=== PATIENT | male | born 1955 | race Caucasian/White ===

== ENCOUNTER 2024-05-22 19:10 | Inpatient (IN) | payer OTHER ==
[2024-05-22] MEDS ORDERED: ACETAMINOPHEN INJECTION 100 ML IVPB ONE (20:04)
[2024-05-22] MEDS: ACETAMINOPHEN 1000 MG/100 ML BAG IVPB ONE (20:23)
[2024-05-22 20:36] LABS: BASO % 0.7 % (0-2.0); HEMATOCRIT 36.9 % (35.4-49); HEMOGLOBIN 13.3 GM/dL (11.7-16.9); LYMPH % 14.2 % (8-40); MCH 29.2 pg (25.7-33.7); MEAN CELL VOLUME 81.2 fl (80-96); MEAN PLT VOLUME 7.5 fl (7.5-11.1); MONO % 6.6 % (3.8-10.2); NEUT % 75.5 % (42.8-82.8); PLATELET COUNT 220 10^3/uL (134-434); RBC 4.55 M/mm3 (4.00-5.60); RDW 14.5 % (11.9-15.9); WHITE BLOOD COUNT 10.2 K/mm3 (4.0-10.0)
[2024-05-22 20:44] LABS: INR 1.11 (0.83-1.09); PROTHROMBIN TIME (PATIENT) 12.7 SEC (9.7-13.0)
[2024-05-22 20:47] LABS: ACTIVATED PTT 33.7 SECONDS (25.2-36.5)
[2024-05-22 20:54] LABS: POTASSIUM 3.7 mmol/L (3.5-5.1)
[2024-05-22 20:56] LABS: ALBUMIN 3.9 g/dl (3.4-5.0); BLOOD UREA NITROGEN 20.1 mg/dL (7-18); CALCIUM 9.6 mg/dL (8.5-10.1)
[2024-05-22 20:59] LABS: CREATININE 0.8 mg/dL (0.55-1.3)
[2024-05-22 21:01] LABS: BILIRUBIN,TOTAL 0.9 mg/dL (0.2-1); TOT PROT 7.4 g/dl (6.4-8.2)
[2024-05-22] MEDS ORDERED: KETOROLAC TROMETHAMINE 15 MG/ML VIAL ONE (21:45)
[2024-05-22] MEDS: KETOROLAC TROMETHAMINE 15 MG/ML VIAL IVPUSH ONE (22:31)
[2024-05-22 22:34] LABS: EPI CELLS 2 /uL (0-25.1); HYALINE CASTS 3 /uL (0-3.1); URINE APPEARANCE CLOUDY; URINE BACTERIA >9,000 /uL (0-1359); URINE BILIRUBIN NEGATIVE (NEGATIVE); URINE COLOR DK YELLOW; URINE GLUCOSE (UA) NEGATIVE (NEGATIVE); URINE KETONE TRACE (NEGATIVE); URINE LEUK ESTERASE 2+ (NEGATIVE); URINE NITRITE POSITIVE (NEGATIVE); URINE PROTEIN 2+ (NEGATIVE); URINE RBC 1295 /uL (0-23.9); URINE WBC 691 /uL (0-25.8)
[2024-05-22] MEDS ORDERED: CEFTRIAXONE 1 GM/50 ML BAG ONE (23:30)
[2024-05-22] MEDS: CEFTRIAXONE 1,000 MG in DEXTROSE 5%-WATER - 50 ML IVPB ONE (23:40)
[2024-05-23] MEDS ORDERED: MORPHINE SULFATE 2 MG/ML SYRINGE ONE (01:18)
[2024-05-23] MEDS ORDERED: ACETAMINOPHEN 325 MG TABLET (FP) PO PRN ×2 (03:57→17:59)
[2024-05-23] MEDS ORDERED: PIPERACILLIN/TAZOB 3.375 GM 3.375 GM/50 ML BAG IVPB ONE (04:21)
[2024-05-23] MEDS: PIPERACILLIN/TAZOB 3.375 GM 3.375 GM in DEXTROSE 5%-WATER - 50 ML IVPB SCH ×2 (04:26→18:42)
[2024-05-23 06:13] VITALS: RESP 18
[2024-05-23 06:16] LABS: BASO % 0.8 % (0-2.0); EOS % 3.9 % (0-4.5); HEMATOCRIT 36.3 % (35.4-49); HEMOGLOBIN 13.3 GM/dL (11.7-16.9); LYMPH % 14.5 % (8-40); MCH 29.6 pg (25.7-33.7); MCHC 36.6 g/dl (32.0-35.9); MEAN CELL VOLUME 80.9 fl (80-96); MEAN PLT VOLUME 7.7 fl (7.5-11.1); MONO % 8.6 % (3.8-10.2); NEUT % 72.2 % (42.8-82.8); PLATELET COUNT 223 10^3/uL (134-434); RBC 4.49 M/mm3 (4.00-5.60); RDW 14.3 % (11.9-15.9); WHITE BLOOD COUNT 9.5 K/mm3 (4.0-10.0)
[2024-05-23 06:34] LABS: POTASSIUM 4.1 mmol/L (3.5-5.1)
[2024-05-23] MEDS: PIPERACILLIN/TAZOB 3.375 GM 3.375 GM/50 ML BAG IVPB SCH (06:37)
[2024-05-23 06:38] LABS: CALCIUM 9.5 mg/dL (8.5-10.1)
[2024-05-23 06:39] LABS: ALBUMIN 3.7 g/dl (3.4-5.0)
[2024-05-23 06:42] LABS: CREATININE 1.1 mg/dL (0.55-1.3); PHOSPHOROUS 4.8 mg/dL (2.5-4.9)
[2024-05-23 06:44] LABS: BILIRUBIN,TOTAL 2.2 mg/dL (0.2-1); TOT PROT 7.1 g/dl (6.4-8.2)
[2024-05-23] MEDS: PIPERACILLIN/TAZOB 3.375 GM 3.375 GM in DEXTROSE 5%-WATER 100 ML IVPB SCH (10:10)
[2024-05-23] MEDS: ENOXAPARIN NA (PORCINE) 40 MG/0.4 ML DISP.SYRIN SQ SCH (10:11)
[2024-05-23 12:07] VITALS: BMI 20.4
[2024-05-23] MEDS: LIDOCAINE 5% TOPICAL PATCH TP SCH (12:48)
[2024-05-23 13:10] LABS: METHADONE, UR NEGATIVE (NEGATIVE); URINE AMPHETAMINES NEGATIVE (NEGATIVE); URINE BARBITURATES NEGATIVE (NEGATIVE)
[2024-05-23 13:11] LABS: PHENCYCLIDINE,URINE NEGATIVE (NEGATIVE); URINE BENZODIAZEPINES NEGATIVE (NEGATIVE)
[2024-05-23 13:22] LABS: COCAINE, UR NEGATIVE (NEGATIVE); OPIATES, URI POSITIVE (NEGATIVE)
[2024-05-23 14:32] LABS: BILIRUBIN,DIRECT 1.3 mg/dL (0.0-0.2)
[2024-05-23] MEDS: traMADol HCL 50 MG TABLET PO PRN (18:40)
[2024-05-23] MEDS: LIDOCAINE PATCH REMOVAL MC SCH (22:18)
[2024-05-24 09:31] LABS: BASO % 0.9 % (0-2.0); EOS % 7.7 % (0-4.5); HEMATOCRIT 36.8 % (35.4-49); HEMOGLOBIN 13.5 GM/dL (11.7-16.9); LYMPH % 21.8 % (8-40); MCH 29.5 pg (25.7-33.7); MCHC 36.7 g/dl (32.0-35.9); MEAN CELL VOLUME 80.4 fl (80-96); MEAN PLT VOLUME 7.9 fl (7.5-11.1); MONO % 6.5 % (3.8-10.2); NEUT % 63.1 % (42.8-82.8); PLATELET COUNT 222 10^3/uL (134-434); RBC 4.57 M/mm3 (4.00-5.60); RDW 14.3 % (11.9-15.9); WHITE BLOOD COUNT 6.7 K/mm3 (4.0-10.0)
[2024-05-24 09:34] LABS: POTASSIUM 3.9 mmol/L (3.5-5.1)
[2024-05-24 09:56] LABS: ALBUMIN 3.7 g/dl (3.4-5.0); CALCIUM 9.3 mg/dL (8.5-10.1)
[2024-05-24 09:57] LABS: BLOOD UREA NITROGEN 19.6 mg/dL (7-18)
[2024-05-24 09:58] LABS: CREATININE 0.8 mg/dL (0.55-1.3); TOT PROT 7.2 g/dl (6.4-8.2)
[2024-05-24 09:59] LABS: BILIRUBIN,TOTAL 0.8 mg/dL (0.2-1)
[2024-05-25] MEDS ORDERED: amLODIPine BESYLATE 5 MG TABLET (FP) PO ONE (08:00)
[2024-05-25] MEDS: hydrALAZINE HCL 25 MG TABLET (FP) PO SCH (10:30)
[2024-05-25 10:50] LABS: POTASSIUM 3.8 mmol/L (3.5-5.1)
[2024-05-25 10:58] LABS: ALBUMIN 3.6 g/dl (3.4-5.0); CALCIUM 9.3 mg/dL (8.5-10.1)
[2024-05-25 11:01] LABS: CREATININE 0.9 mg/dL (0.55-1.3)
[2024-05-25] MEDS: amLODIPine BESYLATE 5 MG TABLET (FP) PO ONE (11:01)
[2024-05-25 11:02] LABS: BILIRUBIN,TOTAL 0.6 mg/dL (0.2-1)
[2024-05-25] MEDS: NITROFURANTOIN MONOHYD/M-CRYST 100 MG CAPSULE PO SCH (16:20)
[2024-05-25] MEDS: traMADol HCL 50 MG TABLET PO PRN (21:40)
[2024-05-26] MEDS: ACETAMINOPHEN 1000 MG/100 ML BAG IVPB ONE (03:00)
[2024-05-27 00:33] VITALS: PULSE 77
[2024-05-27] MEDS ORDERED: traMADol HCL 50 MG TABLET PO PRN (08:00)
[2024-05-27] MEDS ORDERED: ACETAMINOPHEN 325 MG TABLET (FP) PO PRN ×2 (08:00→09:38)
[2024-05-27] MEDS: traMADol HCL 50 MG TABLET PO ONE (08:21)
[2024-05-27] MEDS: GABAPENTIN 100 MG CAPSULE PO ONE (08:21)
[2024-05-27 08:53] VITALS: BP 147/93; TEMP 97.7
[2024-05-27] MEDS ORDERED: oxyCODONE HCL 5 MG TABLET PO PRN (09:36)
[2024-05-27] MEDS: oxyCODONE HCL 5 MG TABLET PO PRN (10:22)
[2024-05-27] MEDS: POLYETHYLENE GLYCOL (HEALTHYLAX) 3350 17 GM PACKET PO SCH (10:29)
[2024-05-27] MEDS: DOCUSATE SODIUM 100 MG CAPSULE (FP) PO SCH (13:43)
[2024-05-27] MEDS ORDERED: GABAPENTIN 100 MG CAPSULE PO SCH (22:00)
== END 2024-05-27 14:12 | DRG 699 ==
LOC: JER 19:10 → JERBED 22:43 → OBSVTOIN 05-23 02:03 → J8W 05-23 06:52
PROVIDERS: ADMIT Internal Medicine; ATTEND Nurse Practitioner Family
DX: T83.511A Infection and inflammatory reaction due to indwelling urethral catheter, initial encounter (principal); F11.20 Opioid dependence, uncomplicated; G40.909 Epilepsy, unspecified, not intractable, without status epilepticus; N39.0 Urinary tract infection, site not specified; J45.909 Unspecified asthma, uncomplicated; F17.210 Nicotine dependence, cigarettes, uncomplicated; R79.89 Other specified abnormal findings of blood chemistry; N32.0 Bladder-neck obstruction; F12.10 Cannabis abuse, uncomplicated; N31.9 Neuromuscular dysfunction of bladder, unspecified; Y84.6 Urinary catheterization as the cause of abnormal reaction of the patient, or of later complication, without mention of misadventure at the time of the procedure
CPT/HCPCS: 0241U-QW; 36415; 70450-TC; 71045-TC-FY; 74176-TC; 76705-TC; 80053; 80307; 81003; 82248; 82550; 82977; 83690; 83735; 84100; 84484; 85025; 85610; 85730; 86704; 86708; 86803; 87077; 87086; 87186; 87340; 87517; 87522; 93005; 93010; 97116-GP; 97161-GP; 99285-25; G0378; J0131

== ENCOUNTER 2024-07-15 16:13 | Inpatient (IN) | payer OTHER ==
[2024-07-15 16:43] VITALS: BMI 25.5
[2024-07-15] MEDS ORDERED: ACETAMINOPHEN INJECTION 100 ML ONE (18:44)
[2024-07-15] MEDS: ACETAMINOPHEN 1000 MG/100 ML BAG IVPB ONE (18:48)
[2024-07-15] MEDS: SODIUM CHLORIDE 1,000 ML IV STA (18:48)
[2024-07-15 18:51] LABS: BASO % 2.5 % (0-2.0); EOS % 7.8 % (0-4.5); HEMATOCRIT 36.5 % (35.4-49); HEMOGLOBIN 12.9 GM/dL (11.7-16.9); LYMPH % 18.9 % (8-40); MCH 28.6 pg (25.7-33.7); MCHC 35.4 g/dl (32.0-35.9); MEAN CELL VOLUME 80.8 fl (80-96); MEAN PLT VOLUME 8.3 fl (7.5-11.1); MONO % 7.9 % (3.8-10.2); NEUT % 62.9 % (42.8-82.8); PLATELET COUNT 207 10^3/uL (134-434); RBC 4.51 M/mm3 (4.00-5.60); RDW 14.3 % (11.9-15.9); WHITE BLOOD COUNT 8.7 K/mm3 (4.0-10.0)
[2024-07-15 18:53] LABS: EPI CELLS 0 /uL (0-25.1); HYALINE CASTS 0 /uL (0-3.1); URINE APPEARANCE CLEAR; URINE BACTERIA 1678 /uL (0-1359); URINE BILIRUBIN NEGATIVE (NEGATIVE); URINE COLOR YELLOW; URINE GLUCOSE (UA) NEGATIVE (NEGATIVE); URINE KETONE NEGATIVE (NEGATIVE); URINE LEUK ESTERASE 2+ (NEGATIVE); URINE NITRITE POSITIVE (NEGATIVE); URINE PROTEIN TRACE (NEGATIVE); URINE RBC 81 /uL (0-23.9); URINE WBC 111 /uL (0-25.8)
[2024-07-15 19:15] LABS: POTASSIUM 3.9 mmol/L (3.5-5.1)
[2024-07-15 19:17] LABS: ALBUMIN 3.7 g/dl (3.4-5.0); BLOOD UREA NITROGEN 19.3 mg/dL (7-18); CALCIUM 8.8 mg/dL (8.5-10.1)
[2024-07-15 19:21] LABS: CREATININE 0.9 mg/dL (0.55-1.3)
[2024-07-15 19:22] LABS: BILIRUBIN,TOTAL 0.5 mg/dL (0.2-1); TOT PROT 7.2 g/dl (6.4-8.2)
[2024-07-15 19:25] LABS: N-TERMINAL BNP 113.1 pg/ml (5-125)
[2024-07-15] MEDS ORDERED: CEFTRIAXONE 1 GM/50 ML BAG ONE (20:09)
[2024-07-15] MEDS: CEFTRIAXONE 1 GM in DEXTROSE 5%-WATER - 100 ML IVPB ONE (20:15)
[2024-07-15] MEDS ORDERED: MORPHINE SULFATE 2 MG/ML SYRINGE ONE (20:27)
[2024-07-15] MEDS: morphine CARPU-JECT 2 MG/1 ML DISP.SYRIN IVPUSH ONE (20:32)
[2024-07-16 01:40] VITALS: RESP 18
[2024-07-16] MEDS: oxyCODONE HCL 5 MG TABLET PO PRN (04:11)
[2024-07-16] MEDS: MELATONIN 5 MG TABLETS PO PRN (04:12)
[2024-07-16] MEDS: ACETAMINOPHEN 325 MG TABLET (FP) PO ONE (06:54)
[2024-07-16] MEDS: LIDOCAINE 5% TOPICAL PATCH TP ONE (06:54)
[2024-07-16] MEDS: GABAPENTIN 100 MG CAPSULE PO SCH ×2 (09:50→21:33)
[2024-07-16] MEDS: hydrALAZINE HCL 25 MG TABLET (FP) PO SCH (09:50)
[2024-07-16] MEDS: TAMSULOSIN HCL 0.4 MG CAP PO SCH (09:50)
[2024-07-16] MEDS: VANCOMYCIN/WATER FOR INJ (PEG) 1,000 MG/200 ML BAG IVPB SCH (09:51)
[2024-07-16] MEDS: HEPARIN NA (PORCINE) 5,000 UNITS/ML 1ML VIAL SQ SCH (09:51)
[2024-07-16] MEDS ORDERED: GABAPENTIN 300 MG CAPSULE PO SCH (10:00)
[2024-07-16 10:34] LABS: BASO % 0.9 % (0-2.0); EOS % 9.4 % (0-4.5); HEMATOCRIT 37.4 % (35.4-49); HEMOGLOBIN 13.1 GM/dL (11.7-16.9); LYMPH % 12.7 % (8-40); MCH 28.5 pg (25.7-33.7); MCHC 35.1 g/dl (32.0-35.9); MEAN CELL VOLUME 81.2 fl (80-96); MEAN PLT VOLUME 7.7 fl (7.5-11.1); MONO % 6.4 % (3.8-10.2); NEUT % 70.6 % (42.8-82.8); PLATELET COUNT 186 10^3/uL (134-434); RBC 4.61 M/mm3 (4.00-5.60); RDW 13.7 % (11.9-15.9); WHITE BLOOD COUNT 7.3 K/mm3 (4.0-10.0)
[2024-07-16 10:57] LABS: POTASSIUM 3.8 mmol/L (3.5-5.1)
[2024-07-16 10:59] LABS: CALCIUM 9.1 mg/dL (8.5-10.1)
[2024-07-16 11:00] LABS: BLOOD UREA NITROGEN 15.1 mg/dL (7-18)
[2024-07-16 11:03] LABS: CREATININE 0.8 mg/dL (0.55-1.3)
[2024-07-16] MEDS: VANCOMYCIN 1,000 MG in DEXTROSE 5%-WATER - 250 ML IVPB SCH (11:58)
[2024-07-16] MEDS: CYCLOBENZAPRINE HCL 10 MG TABLET (FP) PO PRN (20:38)
[2024-07-16] MEDS: LIDOCAINE PATCH REMOVAL MC SCH (21:34)
[2024-07-16] MEDS: BUDESONIDE/FORMETEROL FUMARATE 160/4.5 mcg INHALER IH SCH (21:34)
[2024-07-17] MEDS: ACETAMINOPHEN 325 MG TABLET (FP) PO ONE ×2 (01:45→02:31)
[2024-07-17] MEDS ORDERED: ALBUTEROL SO4 0.083% IH SOL 2.5 MG/3 ML VIAL.NEB. NEB PRN (07:23)
[2024-07-17] MEDS: methylPREDNISolone NA SUCC 40 MG/1 ML VIAL IVPUSH SCH (10:00)
[2024-07-17 12:54] LABS: HIV INTERPRETATION NEGATIVE (NEGATIVE)
[2024-07-18 08:43] VITALS: PULSE 68; TEMP 97.5
[2024-07-18 15:24] VITALS: BP 195/83
== END 2024-07-18 19:17 | DRG 554 ==
LOC: JER 16:13 → JERBED 22:53 → J5S 07-16 00:02
PROVIDERS: ADMIT Internal Medicine; ATTEND Family Medicine
DX: M19.90 Unspecified osteoarthritis, unspecified site (principal); F11.20 Opioid dependence, uncomplicated; J44.1 Chronic obstructive pulmonary disease with (acute) exacerbation; M54.9 Dorsalgia, unspecified; R10.9 Unspecified abdominal pain; G40.909 Epilepsy, unspecified, not intractable, without status epilepticus; F12.20 Cannabis dependence, uncomplicated
CPT/HCPCS: 36415; 71045-TC-FY; 74177-TC; 80048; 80053; 81003; 83880; 84484; 85025; 87086; 87186; 87389; 93005; 93010; 99285-25; J0131; J1644; Q9967

== ENCOUNTER 2024-07-30 17:05 | Inpatient (IN) | payer OTHER ==
[2024-07-30] MEDS ORDERED: ACETAMINOPHEN INJECTION 100 ML ONE (18:33)
[2024-07-30] MEDS: ACETAMINOPHEN 1000 MG/100 ML BAG IVPB ONE (18:42)
[2024-07-30 18:49] LABS: BASO % 0.9 % (0-2.0); EOS % 6.7 % (0-4.5); HEMATOCRIT 38.5 % (35.4-49); HEMOGLOBIN 13.3 GM/dL (11.7-16.9); LYMPH % 13.8 % (8-40); MCH 28.2 pg (25.7-33.7); MCHC 34.6 g/dl (32.0-35.9); MEAN CELL VOLUME 81.6 fl (80-96); MEAN PLT VOLUME 7.5 fl (7.5-11.1); MONO % 8.5 % (3.8-10.2); NEUT % 70.1 % (42.8-82.8); PLATELET COUNT 186 10^3/uL (134-434); RBC 4.72 M/mm3 (4.00-5.60); RDW 13.8 % (11.9-15.9)
[2024-07-30 19:10] LABS: CHLORIDE 105 mmol/L (98-107); POTASSIUM 3.6 mmol/L (3.5-5.1); SODIUM 143 mmol/L (136-145)
[2024-07-30 19:11] LABS: MAGNESIUM 2.4 mg/dL (1.8-2.4)
[2024-07-30 19:12] LABS: BLOOD UREA NITROGEN 38.8 mg/dL (7-18); CALCIUM 9.1 mg/dL (8.5-10.1)
[2024-07-30 19:13] LABS: ALBUMIN 3.6 g/dl (3.4-5.0); ANION GAP 6 mmol/L (4-13); CO2 31 mmol/L (21-32); GLUCOSE,RANDOM 131 mg/dL (74-106)
[2024-07-30 19:16] LABS: PHOSPHOROUS 3.1 mg/dL (2.5-4.9); SGOT/AST 37 U/L (15-37); SGPT/ALT 38 U/L (13-61)
[2024-07-30 19:17] LABS: TOT PROT 6.9 g/dl (6.4-8.2)
[2024-07-30 19:18] LABS: BILIRUBIN,TOTAL 0.5 mg/dL (0.2-1)
[2024-07-30 19:19] LABS: ALK PHOS 57 U/L (45-117)
[2024-07-30 20:18] LABS: ERYTHROCYTE SEDIMENTATION RATE 7 mm/hr (0-20)
[2024-07-30] MEDS: SODIUM CHLORIDE 0.9% 500 ML INFUS.BAG IV ONE (21:01)
[2024-07-30 21:33] LABS: EPI CELLS 1 /uL (0-25.1); HYALINE CASTS 2 /uL (0-3.1); PH,URINE 5.5 (5.0-8.0); URINE APPEARANCE CLOUDY; URINE BILIRUBIN NEGATIVE (NEGATIVE); URINE COLOR DK YELLOW; URINE GLUCOSE (UA) NEGATIVE (NEGATIVE); URINE KETONE TRACE (NEGATIVE); URINE LEUK ESTERASE 2+ (NEGATIVE); URINE NITRITE POSITIVE (NEGATIVE); URINE PROTEIN 1+ (NEGATIVE); URINE RBC 224 /uL (0-23.9); URINE WBC 321 /uL (0-25.8)
[2024-07-30] MEDS ORDERED: morphine SULFATE 4 MG/ML VIAL ONE (21:40)
[2024-07-30] MEDS: morphine CARPU-JECT 4 MG/1 ML DISP.SYRIN IVPUSH ONE (21:43)
[2024-07-31] MEDS: ACETAMINOPHEN 1000 MG/100 ML BAG IVPB PRN (02:38)
[2024-07-31 03:30] VITALS: BMI 24.5
[2024-07-31] MEDS: LOSARTAN POTASSIUM 50 MG TABLET PO ONE (04:41)
[2024-07-31] MEDS: morphine SULFATE 4 MG/ML VIAL IVPUSH ONE (05:07)
[2024-07-31 09:28] LABS: BASO % 1.3 % (0-2.0); EOS % 7.5 % (0-4.5); HEMATOCRIT 39.8 % (35.4-49); HEMOGLOBIN 13.4 GM/dL (11.7-16.9); LYMPH % 18.5 % (8-40); MCH 27.7 pg (25.7-33.7); MCHC 33.6 g/dl (32.0-35.9); MEAN CELL VOLUME 82.5 fl (80-96); MEAN PLT VOLUME 8.2 fl (7.5-11.1); MONO % 6.3 % (3.8-10.2); NEUT % 66.4 % (42.8-82.8); PLATELET COUNT 172 10^3/uL (134-434); RBC 4.83 M/mm3 (4.00-5.60); RDW 13.6 % (11.9-15.9); WHITE BLOOD COUNT 11.2 K/mm3 (4.0-10.0)
[2024-07-31 09:56] LABS: POTASSIUM 3.7 mmol/L (3.5-5.1)
[2024-07-31] MEDS: SENNOSIDES 8.6MG TABLET (FP) PO SCH (09:57)
[2024-07-31] MEDS: TAMSULOSIN HCL 0.4 MG CAP PO SCH (09:57)
[2024-07-31] MEDS: hydrALAZINE HCL 25 MG TABLET (FP) PO SCH (09:57)
[2024-07-31 10:28] LABS: CALCIUM 9.5 mg/dL (8.5-10.1)
[2024-07-31 10:29] LABS: BLOOD UREA NITROGEN 30.5 mg/dL (7-18)
[2024-07-31 10:32] LABS: CREATININE 0.7 mg/dL (0.55-1.3)
[2024-07-31] MEDS: oxyCODONE HCL 5 MG TABLET PO PRN (10:41)
[2024-07-31] MEDS: ERTAPENEM SODIUM 1 GM in SODIUM CHLORIDE 50 ML IVPB SCH (12:17)
[2024-07-31] MEDS: CYCLOBENZAPRINE HCL 10 MG TABLET (FP) PO SCH (14:30)
[2024-07-31] MEDS: GABAPENTIN 300 MG CAPSULE PO SCH (16:06)
[2024-07-31] MEDS: BUDESONIDE/FORMETEROL FUMARATE 160/4.5 mcg INHALER IH SCH (16:06)
[2024-07-31] MEDS: GABAPENTIN 100 MG CAPSULE PO SCH (21:50)
[2024-08-01] MEDS: LORazepam 2 MG/ML SDV VIAL IVPUSH ONE (10:48)
[2024-08-03 08:34] LABS: BASO % 0.8 % (0-2.0); EOS % 4.6 % (0-4.5); HEMATOCRIT 41.1 % (35.4-49); HEMOGLOBIN 13.8 GM/dL (11.7-16.9); LYMPH % 13.9 % (8-40); MCH 27.7 pg (25.7-33.7); MCHC 33.6 g/dl (32.0-35.9); MEAN CELL VOLUME 82.5 fl (80-96); MEAN PLT VOLUME 8.1 fl (7.5-11.1); MONO % 7.3 % (3.8-10.2); NEUT % 73.4 % (42.8-82.8); PLATELET COUNT 183 10^3/uL (134-434); RBC 4.99 M/mm3 (4.00-5.60); RDW 14.2 % (11.9-15.9); WHITE BLOOD COUNT 12.2 K/mm3 (4.0-10.0)
[2024-08-03 09:05] LABS: POTASSIUM 4.1 mmol/L (3.5-5.1)
[2024-08-03 09:07] LABS: ALBUMIN 3.3 g/dl (3.4-5.0); CALCIUM 9.1 mg/dL (8.5-10.1)
[2024-08-03 09:08] LABS: BLOOD UREA NITROGEN 19.6 mg/dL (7-18)
[2024-08-03] MEDS: DOXYCYCLINE HYCLATE 100 MG CAPSULE PO SCH (09:09)
[2024-08-03 09:10] LABS: CREATININE 0.8 mg/dL (0.55-1.3)
[2024-08-03 09:12] LABS: BILIRUBIN,TOTAL 0.7 mg/dL (0.2-1); TOT PROT 6.8 g/dl (6.4-8.2)
[2024-08-03] MEDS: ACETAMINOPHEN 500 MG TABLET (FP) PO PRN (14:57)
[2024-08-03] MEDS: ALPRAZolam 0.25 MG TABLET PO PRN (17:17)
[2024-08-07] MEDS: oxyCODONE HCL 5 MG TABLET PO PRN (06:37)
[2024-08-07 21:10] VITALS: BP 123/85; PULSE 87; TEMP 98.1
[2024-08-07 22:45] VITALS: RESP 20
== END 2024-08-08 03:45 | disposition short-term general hospital (02) | DRG 69 ==
LOC: JER 17:05 → JERBED 22:44 → J4W 07-31 03:03 → OBSVTOIN 07-31 13:26
PROVIDERS: ADMIT Student in an Organized Health Care Education/Training Program; ATTEND Family Medicine
DX: G45.9 Transient cerebral ischemic attack, unspecified (principal); N39.0 Urinary tract infection, site not specified; F11.20 Opioid dependence, uncomplicated; I10 Essential (primary) hypertension; J44.9 Chronic obstructive pulmonary disease, unspecified; Z99.81 Dependence on supplemental oxygen; G40.909 Epilepsy, unspecified, not intractable, without status epilepticus; N31.9 Neuromuscular dysfunction of bladder, unspecified; F17.200 Nicotine dependence, unspecified, uncomplicated; R25.2 Cramp and spasm
CPT/HCPCS: 0241U-QW; 36415; 70450-TC; 71045-TC-FY; 72040-TC; 72125-TC; 74177-TC; 80048; 80053; 80061; 81003; 82550; 82553; 83036; 83605; 83735; 84100; 84443; 84484; 85025; 85651; 86140; 87040; 87086; 87186; 87635; 93005; 93010; 99285-25; G0378; J0131